=== PATIENT | male | born 1990 | race Caucasian/White ===

== ENCOUNTER 2021-04-04 09:50 | Emergency (ER) | payer BC ==
[2021-04-04] MEDS ORDERED: Lactated Ringers 1,000 ML ONE (10:08)
[2021-04-04] MEDS ORDERED: Diphtheria,Pertussis(Acell),Tetanus Vaccine 0.5 ML Syringe IM ONE (10:15)
[2021-04-04] MEDS ORDERED: Lactated Ringers 1,000 ML IV ONE (10:30)
--- NOTE | 2021-04-04 10:36 | EDM.PDOC ---
ED HPI GENERAL MEDICAL PROBLEM - General Chief Complaint: General Stated Complaint: left wrist laceration Time Seen by Provider: 04/04/21 10:05 Source of Information: Reports: Patient, EMS History Limitations: Reports: No Limitations - History of Present Illness INITIAL COMMENTS - FREE TEXT/NARRATIVE: Lucien is a 31 yo male who presents to the ED via [facility] with c/o i njury to his left wrist. He reports he was attempting to relieve bloating from a cow with a scalpel. Reports the cow kicked his right arm and the scalpel he was using punctured his left wrist. He believes the scalpel is still in his wrist. He denies any pain at time of presentation. Turnicate was placed at 0931 by EMS. Does report numbness of hand. Is able to move all digits. Cap refill is < 2 sec onds in all digits. Reports large amount of blood loss on scene prior to turnicate placement. Denies any other injury. GCS 15. Patient is alert and in no acute distress. 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: Reports: Other (see below) (Turnicate to left wrist) - Related Data Allergies Allergy/AdvReac Type Severity Reaction Status Date / Time No Known Allergies Allergy Verified 04/04/21 12:16 Home Meds: Home Meds Aspirin [Halfprin] 81 mg PO DAILY 04/04/21 [History] Cholecalciferol (Vitamin D3) [Vitamin D3] 1 tab PO ASDIRECTED PRN 04/04/21 [History] Losartan/Hydrochlorothiazide [Losartan-HCTZ 100-25 MG] 1 tab PO DAILY 04/04/21 [History] Metoprolol Succinate [Toprol XL] 200 mg PO DAILY 04/04/21 [History] amLODIPine Besylate [Amlodipine Besylate] 10 mg PO DAILY 04/04/21 [History] Past Medical History Cardiovascular History: Reports: Hypertension Social & Family History - Family History Endocrine/Metabolic: Reports: Diabetes, type II - Tobacco Use Tobacco Use Status *Q: Current Every Day Tobacco User Years of Tobacco use: 10 Packs/Tins Daily: 0.3 - Living Situation & Occupation Living situation: Reports: with Family ED ROS GENERAL - Review of Systems Review Of Systems: Comprehensive ROS is negative, except as noted in HPI. ED EXAM, GENERAL - Physical Exam Exam: See Below Exam Limited By: No Limitations General Appearance: Alert, WD/WN, No Apparent Distress Eye Exam: Bilateral Eye: Normal Fundi, Normal Inspection, PERRL Head: Atraumatic, Normocephalic Neck: Normal Inspection, Supple, Non-Tender, Full Range of Motion Respiratory/Chest: No Respiratory Distress, Lungs Clear, Normal Breath Sounds, No Accessory Muscle Use, Chest Non-Tender Cardiovascular: Normal Peripheral Pulses, Regular Rate, Rhythm, No Edema, No Gallop, No JVD, No Murmur, No Rub Peripheral Pulses: 2+: Radial (L), Radial (R) GI/Abdominal: Normal Bowel Sounds, Soft, Non-Tender, No Organomegaly, No Distention, No Abnormal Bruit, No Mass, Pelvis Stable Extremities: Normal Capillary Refill, Limited Range of Motion (turnicate in place to left wrst), Other (laceration of left wrist, turnicate in place without active bleeding, purplish coloration to hand distal to turnicate) Neurological: Alert, Oriented, CN II-XII Intact, Normal Cognition, Normal Gait, No Motor/Sensory Deficits Psychiatric: Normal Affect, Normal Mood Skin Exam: Wound/Incision (left wrist, turnicate in place with hemostasis achieved) Front/Back Body Diagram: 1 - ~2 cm puncture wound, no foreign object visualized externally ED GENERAL MEDICAL PROCEDURES - Splinting Left Upper Extremity Splint Site: left wrist Pre-procedure NV status: Normal Post-procedure NV status: Normal Splint Type: Pre-Fabricated Splint Material: Fiberglass Splint Design: Volar Applied & Form Fitted By: Provider Provider Post-Splint Application NV Check: NV Status Normal, Good Position Complications: No Course - Vital Signs Last Recorded V/S: Last Vital Signs Temp 96.1 F L 04/04/21 11:31 Pulse 66 04/04/21 11:31 Resp 16 04/04/21 11:31 BP 177/115 H 04/04/21 11:31 Pulse Ox 98 04/04/21 11:31 - Orders/Labs/Meds Orders: Active Orders 24 hr Category Date Time Status Wrist 2V Lt [CR] Stat Exams 04/04/21 10:14 Taken Labs: Laboratory Tests 04/04/21 04/04/21 04/04/21 Range/Units 10:53 10:53 10:53 WBC 3.7 L (4.0-11.0) 10^3/uL RBC 4.70 (4.50-6.00) x10^6/uL Hgb 15.0 (14.0-18.0) g/dL Hct 42.0 (42.0-52.0) % MCV 89.4 (83.0-97.0) fL MCH 31.9 (27.0-32.0) pg MCHC 35.7 (32.0-36.0) g/dL RDW Coeff of Malena 10.8 L (11.0-15.0) % Plt Count 186 (150-400) 10^3/uL Add Manual Diff Yes Neutrophils % (Manual) 62 (35-85) % Lymphocytes % (Manual) 18 L (21-55) % Monocytes % (Manual) 19 H (2-12) % Basophils % (Manual) 1 (0-3) % Absolute Neutrophils 2.29 (1.80-7.00) 10^3/uL Lymphocytes # (Manual) 0.67 L (1.00-4.80) 10^3/uL Monocytes # (Manual) 0.70 (0.00-0.80) 10^3/uL Basophils # (Manual) 0.04 10^3/uL Sodium 132 L (136-145) mEq/L Potassium 3.5 (3.5-5.0) mEq/L Chloride 93 L (98-106) mEq/L Carbon Dioxide 27 (21-32) mmol/L BUN 20 H (7-18) mg/dL Creatinine 1.1 (0.7-1.3) mg/dL Est Cr Clr Drug Dosing 117.36 mL/min Estimated GFR (MDRD) > 60 (>=60) mL/min Glucose 108 H (75-99) mg/dL Calcium 9.4 (8.4-10.1) mg/dL Total Bilirubin 0.7 (0.0-1.0) mg/dL AST 42 H (15-37) U/L ALT 104 H (12-78) U/L Alkaline Phosphatase 56 (46-116) U/L Total Protein 8.3 H (6.4-8.2) g/dL Albumin 4.0 (3.4-5.0) g/dL Blood Type A NEGATIVE Gel Antibody Screen Negative Meds: Medications Discontinued Medications Generic Name Dose Route Start Last Admin Trade Name Jason PRN Reason Stop Dose Admin Diphtheria/Tetanus/Acell Pertussis 0.5 ml 04/04/21 10:15 04/04/21 10:35 Diphtheria,Pertussis(Acell),Tetanus Vaccine 0.5 Ml Syringe IM 04/04/21 10:16 0.5 ml .ONCE ONE Administration Lactated Ringer's 1,000 mls @ 999 mls/hr 04/04/21 10:30 04/04/21 10:32 Ringers, Lactated IV 04/04/21 11:30 999 mls/hr .BOLUS ONE Administration Lactated Ringer's Confirm 04/04/21 10:08 04/04/21 10:37 Ringers, Lactated Administered 04/04/21 10:09 Not Given Dose 1,000 mls @ as directed .ROUTE .[facility] - Re-Assessments/Exams Free Text/Narrative Re-Assessment/Exam: 04/04/21 1021 Xrays reveal scalpel remains in wrist. Discussed with patient and mother that he will likely need surgeon/vascular surgeon to remove this given concern for arterial bleed. Called [facility]. Waiting on hold. Turnicate remains in place. BP did have drop from 188/111 to 136/71. Will bolus 1 L IVF. 04/04/21 10:48 Continue to wait on hold for [facility]. 04/04/21 10:[address] [facility]. Awaiting provider. 04/04/21 10:58 Turnicate removed without difficulty. No active hemorrhage. Gauze placed over laceration and splint applied without difficulty. Cap refill remains < 2 seconds. Instant return of pink coloration to digits. Does continue to have some numbness to digits 1-3. 04/04/21 11:[address] Velasco, [facility] surgeon, who accepted the patient for transfer. Patient will be transferred via ALS to [facility]. Discussed risks vs. benefits of transfer with patient. Risks of transfer include worsening of condition, bleeding, MVA and enroute. Benefits of transfer include vascular surgeon to aide in removal of foreign body in wrist. Risks of nontransfer include worsening of condition, bleeding and . Benefits of nontransfer include convenience. Patient verbalized understanding and is agreeable to transfer. Throughout ED stay, patient denied any pain or need for any pain relieving medications. No need for further imaging given no injury to head, chest, abdomen or pelvis. Departure - Departure Time of Disposition: 11:12 Disposition: DC/Tfer to [facility] 02 Condition: Fair Clinical Impression: Laceration of wrist with foreign body Qualifiers: Encounter type: initial encounter Laterality: left Qualified Code(s): S61.522A - Laceration with foreign body of left wrist, initial encounter - Discharge Information *PRESCRIPTION DRUG MONITORING PROGRAM REVIEWED*: Not Applicable *COPY OF PRESCRIPTION DRUG MONITORING REPORT IN PATIENT FACUNDO: Not Applicable Referrals: PCP,Unknown [Primary Care Provider] - Forms: ED Department Discharge Sepsis Event Note (ED) - Focused Exam Vital Signs: Vital Signs Temp Pulse Resp BP Pulse Ox 04/04/21 11:31 96.1 F L 66 16 177/115 H 98 04/04/21 11:06 95.0 F L 04/04/21 11:05 72 16 184/104 H 96 04/04/21 10:46 96.6 F L 72 16 168/94 H 95 04/04/21 10:42 69 16 181/101 H 96 04/04/21 10:28 77 16 139/71 96 04/04/21 10:03 96.9 F 88 16 188/11 H 96 - Problem List & Annotations (1) Laceration of wrist with foreign body SNOMED Code(s): 212091771 Code(s): S61.529A - LACERATION WITH FOREIGN BODY OF UNSP WRIST, INIT ENCNTR Status: Acute Qualifiers: Encounter type: initial encounter Laterality: left Qualified Code(s): S61.522A - Laceration with foreign body of left wrist, initial encounter - Problem List Review Problem List Initiated/Reviewed/Updated: Yes - My Orders Last 24 Hours: My Active Orders 04/04/21 10:14 Wrist 2V Lt [CR] Stat - Assessment/Plan Last 24 Hours: My Active Orders 04/04/21 10:14 Wrist 2V Lt [CR] Stat Assessment:: Laceration of wrist with foreign body Plan: Discussed need for surgeon/vascular surgeon with removal of scalpel from wrist. Patient transferred to [facility] for surgical removal of scalpel and closure of wound. Turnicate was removed at 90 minute flor with hemostasis achieved and good return of blood flow to distal digits. Splint was applied to prevent movement of wrist given scalpel in wrist. VSS throughout stay. He did receive 1 L LR as well as TDAP. Discharged from facility in stable condition.
[2021-04-04 11:09] LABS: CHLORIDE,CL 93 mEq/L (98-106); SODIUM,NA 132 mEq/L (136-145)
[2021-04-04 11:33] VITALS: BP 177/115; PULSE 66
[2021-04-04] MEDS ORDERED: fentaNYL 50 MCG/ML SDV ONE (19:01)
== END 2021-04-04 12:04 ==
LOC: CC.ED 09:50
DX: S61.522A Laceration with foreign body of left wrist, initial encounter (principal); I10 Essential (primary) hypertension; Z23 Encounter for immunization; Z72.0 Tobacco use; Z79.899 Other long term (current) drug therapy; W55.22XA Struck by cow, initial encounter
CPT/HCPCS: 36415; 73100-LT; 80053; 85025; 86850; 86900; 86901; 90471; 90715; 99285-25; J7120